=== PATIENT | female | born 1975 | race Native Hawaiian/Other Pacific Islander ===

== ENCOUNTER 2018-11-14 19:41 | Emergency (ER) | payer OTHER ==
[2018-11-14 19:51] VITALS: BP 150/94; PULSE 102; TEMP 98.5; BMI 25.0
--- NOTE | 2018-11-14 21:50 | PDOC ---
History of Present Illness - General History Source: Patient Exam Limitations: No Limitations <Germaine Kelly - Last Filed: 11/15/18 02:19> <Lizzette Farmer - Last Filed: 11/15/18 02:39> - General Chief Complaint: Ear Problem Stated Complaint: EAR INFECTION Time Seen by Provider: 11/14/18 20:52 Past History - Past Medical History COPD: No - Suicide/Smoking/Psychosocial Hx Smoking History: Never smoked <Germaine Kelly - Last Filed: 11/15/18 02:19> <Lizzette Farmer - Last Filed: 11/15/18 02:39> - Past Medical History Allergies/Adverse Reactions: Allergies Allergy/AdvReac Type Severity Reaction Status Date / Time No Known Allergies Allergy Verified 11/14/18 19:51 Home Medications: Ambulatory Orders Amox-Tr/K Cl [Augmentin - 875Mg Tablet] 1 tab PO BID 7 Days #14 tablet 11/15/18 oxyCODONE HCL [Roxicodone -] 10 mg PO Q6H PRN #12 tablet MDD 4 11/15/18 *Physical Exam - Vital Signs Last Vital Signs Temp Pulse Resp BP Pulse Ox 98.5 F 102 H 20 150/94 99 11/14/18 19:45 11/14/18 19:45 11/14/18 19:45 11/14/18 19:45 11/14/18 19:45 <Germaine Kelly - Last Filed: 11/15/18 02:19> - Vital Signs Last Vital Signs Temp Pulse Resp BP Pulse Ox 98.5 F 102 H 20 150/94 99 11/14/18 19:45 11/14/18 19:45 11/14/18 19:45 11/14/18 19:45 11/14/18 19:45 <Lizzette Farmer - Last Filed: 11/15/18 02:39> Moderate Sedation - Procedure Monitoring Vital Signs: Procedure Monitoring Vital Signs Temperature 98.5 F 11/14/18 19:45 Pulse Rate 102 H 11/14/18 19:45 Respiratory Rate 20 11/14/18 19:45 Blood Pressure 150/94 11/14/18 19:45 O2 Sat by Pulse Oximetry (%) 99 11/14/18 19:45 <Germaine Kelly - Last Filed: 11/15/18 02:19> - Procedure Monitoring Vital Signs: Procedure Monitoring Vital Signs Temperature 98.5 F 11/14/18 19:45 Pulse Rate 102 H 11/14/18 19:45 Respiratory Rate 20 11/14/18 19:45 Blood Pressure 150/94 11/14/18 19:45 O2 Sat by Pulse Oximetry (%) 99 11/14/18 19:45 <Lizzette Farmer - Last Filed: 11/15/18 02:39> ED Treatment Course - LABORATORY CBC & Chemistry Diagram: 11/14/18 22:33 11/14/18 22:33 <RobinGermaine - Last Filed: 11/15/18 02:19> - LABORATORY CBC & Chemistry Diagram: 11/14/18 22:33 11/14/18 22:33 - ADDITIONAL ORDERS Additional order review: Laboratory Results 11/14/18 11/14/18 22:49 22:33 Sodium 140 Potassium 3.0 L Chloride 104 Carbon Dioxide 22 Anion Gap 13 BUN 11 Creatinine 0.9 Creat Clearance w eGFR > 60 Random Glucose 67 L Calcium 8.4 L Total Bilirubin 0.7 AST 37 ALT 41 Alkaline Phosphatase 90 Total Protein 7.9 Albumin 3.6 Serum , Qual Negative 11/14/18 22:33 RBC 4.21 MCV 77.1 L MCHC 34.3 RDW 14.5 MPV 6.4 L Neutrophils % 82.9 H Lymphocytes % 11.4 Monocytes % 4.9 Eosinophils % 0.3 Basophils % 0.5 - Medications Given in the ED: ED Medications Discontinued Medications Generic Name Dose Route Start Last Admin Trade Name Naomy PRN Reason Stop Dose Admin Acetaminophen 1,000 mg 11/14/18 22:05 11/14/18 22:39 Ofirmev Injection - IVPB 11/14/18 22:06 1,000 mg ONCE ONE Administration Benzocaine 1 spray 11/14/18 23:21 11/14/18 23:29 [place] 20% [place] - TP 11/14/18 23:22 1 spray ONCE ONE Administration Dexamethasone Sodium Phosphate 10 mg 11/14/18 22:05 11/14/18 22:38 Decadron Injection - IVPUSH 11/14/18 22:06 10 mg ONCE ONE Administration Sodium Chloride 1,000 mls @ 1,000 mls/hr 11/14/18 22:28 11/14/18 22:39 Normal Saline - IV 11/14/18 23:27 1,000 mls/hr ASDIR STA Administration Ampicillin Sodium/Sulbactam 100 mls @ 200 mls/hr 11/14/18 23:39 11/15/18 00: 05 Sodium 1.5 gm/ Sodium Chloride IVPB 11/15/18 00:08 200 mls/hr ONCE ONE Administration Ketorolac Tromethamine 15 mg 11/14/18 22:28 11/14/18 22:39 Toradol Injection - IVPUSH 11/14/18 22:29 15 mg ONCE ONE Administration Lidocaine HCl 5 ml 11/14/18 23:41 11/14/18 23:52 Xylocaine 1% SQ 11/14/18 23:42 5 ml ONCE ONE Administration Potassium Chloride 40 meq 11/14/18 23:42 11/15/18 00:09 Potassium Chloride Oral Liquid PO 11/14/18 23:43 40 meq ONCE ONE Administration <Lizzette Farmer - Last Filed: 11/15/18 02:39> Medical Decision Making - Medical Decision Making Pt was seen at bedside, also will be seen by attending Dr. Farmer. Pt presenting with complaints of L ear pressure and pain/swelling in her throat, with difficulty handling PO food and fluid intake. PE showed [] Considering [vs vs] Ordered work-up including CBC, CMP, and serum . Will look for peritonsillar abscess with bedside US. Provided 1 g ofirmev, 15 mg IV toradol, and 10 mg IV decadron for improvement of pain and swelling. Will continue to reassess pt and monitor for symptomatic improvement. 11/14/18 22:49 Strep throat still positive, despite pt taking PO amoxicillin 875 mg x4 days -- Unasyn provided in ER for antibiotic coverage. Bedside incision and drainage attempted of peritonsillar abscess -- minimal drainage noted. Ordered CT neck with IV contrast to r/o deeper tissue involvement. CBC: WBC 19 CMP: generally WNL, K 3.0 -- repleted with 40 mg PO K test negative 11/15/18 01:[address] neck with IV contrast 11/15/18 01:04 <Germaine Kelly - Last Filed: 11/15/18 02:19> *DC/Admit/Observation/Transfer - Discharge Dispostion Decision to Admit order: No <Germaine Kelly - Last Filed: 11/15/18 02:19> <Lizzette Farmer - Last Filed: 11/15/18 02:39> Diagnosis at time of Disposition: Peritonsillar abscess, Strep tonsillitis - Discharge Dispostion Disposition: HOME Condition at time of disposition: Improved - Prescriptions Prescriptions: Amox-Tr/K Cl [Augmentin - 875Mg Tablet] 1 tab PO BID 7 Days #14 tablet oxyCODONE HCL [Roxicodone -] 10 mg PO Q6H PRN #12 tablet MDD 4 PRN Reason: Pain Level 7 - 10 - Referrals Ref[place]: [facility] [place] [place]Provider Group] Mamadou Johansen [Staff Physician] - Jerome Kendrick MD [Staff Physician] - - Patient Instructions Printed Discharge Instructions: DI for Pharyngitis/Tonsillopharyngitis -- Adult , DI for Strep Throat, DI for Peritonsillar Abscess -- Adult Additional Instructions: Your laboratory / imaging results were remarkable for infection of your throat, called Strep. there is also an early abscess in development of your throat on the left side of tonsil you were offered admission, but declined. you have tolerated fluids and pain controlled Follow up with your physician and consultants as instructed below - this is an urgent matter, take your medications as instructed including Augmentin x 10 days to cover strep and other serious infections. you can also take motrin/ tylenol as needed, but oxycodone for severe pain. Return if worsening symptoms including worsening pain/sore throat, pain, muffled voice, cannot tolerate secretions, high fevers, headache, vomiting, visual or hearing disturbances, confusion, abdominal pain, chest pain, shortness of breath, respiratory distress, syncope, dehydration, inability to take things by mouth/vomiting, altered mental status, or worsening concerning symptoms. your medications on discharge include_ side effects may include upset stomach, abdominal pain, vomiting, or diarrhea. do not drink alcohol with your medications. You should call to make appointment with Dr Kendrick or Haily, environmental professional doctors for ENT. [facility] Address: [address] [place] [id number] Hours: Opens 8:30AM Mon ======== [address] [facility] [address] [place], [address] [facility]
[2018-11-14] MEDS ORDERED: DEXAMETHASONE SOD PHOSPHATE 10 MG/1 ML VIAL IVPUSH ONE (22:05)
[2018-11-14] MEDS ORDERED: ACETAMINOPHEN 1000 MG/100 ML VIAL (NON FORMULARY) IVPB ONE (22:05)
[2018-11-14] MEDS ORDERED: KETOROLAC TROMETHAMINE 15 MG/ML VIAL IVPUSH ONE (22:28)
[2018-11-14] MEDS ORDERED: SODIUM CHLORIDE 1,000 ML IV STA (22:28)
[2018-11-14] MEDS ORDERED: ACETAMINOPHEN INJECTION 100 ML IVPB ONE (22:33)
[2018-11-14] MEDS ORDERED: DEXAMETHASONE SOD PHOSPHATE 4 MG/1 ML VIAL ONE (22:33)
[2018-11-14 22:40] LABS: BASO % 0.5 % (0-2.0); EOS % 0.3 % (0-4.5); HEMATOCRIT 32.4 % (32.4-45.2); HEMOGLOBIN 11.1 GM/dL (10.7-15.3); LYMPH % 11.4 % (8-40); MCH 26.5 pg (25.7-33.7); MCHC 34.3 g/dl (32.0-36.0); MEAN CELL VOLUME 77.1 fl (80-96); MEAN PLT VOLUME 6.4 fl (7.5-11.1); MONO % 4.9 % (3.8-10.2); NEUT % 82.9 % (42.8-82.8); PLATELET COUNT 568 K/MM3 (134-434); RBC 4.21 M/mm3 (3.60-5.2); RDW 14.5 % (11.6-15.6); WHITE BLOOD COUNT 19.9 K/mm3 (4.0-10.0)
[2018-11-14 23:02] LABS: ALBUMIN 3.6 g/dl (3.4-5.0); ALK PHOS 90 U/L (45-117); ANION GAP 13 MMOL/L (8-16); BILIRUBIN,TOTAL 0.7 mg/dL (0.2-1); BLOOD UREA NITROGEN 11 mg/dL (7-18); CALCIUM 8.4 mg/dL (8.5-10.1); CHLORIDE 104 mmol/L (98-107); CO2 22 mmol/L (21-32); CREATININE 0.9 mg/dL (0.55-1.3); GLUCOSE,RANDOM 67 mg/dL (74-106); SGOT/AST 37 U/L (15-37); SGPT/ALT 41 U/L (13-61); SODIUM 140 mmol/L (136-145); TOT PROT 7.9 g/dl (6.4-8.2)
[2018-11-14] MEDS ORDERED: BENZOCAINE 20% 57 GM BOTTLE TP ONE (23:21)
[2018-11-14] MEDS ORDERED: AMPICILLIN NA/SULBACTAM NA 1.5 GM in SODIUM CHLORIDE 100 ML IVPB ONE (23:39)
--- NOTE | 2018-11-14 23:40 | PDOC ---
Attending Attestation - Resident Resident Name: Germaine Kelly - ED Attending Attestation I have performed the following: I have examined & evaluated the patient, The case was reviewed & discussed with the resident, I agree w/resident's findings & plan - HPI HPI: 11/15/18 02:08 [id number], with no significant past medical history, who presents to the emergency department with, left ear pressure and pain/swelling to the throat x 6 days. + intermittent fevers and sore throat, some difficulty swallowing but shannan PO. recent urgent care visit, started on amoxicillin which she has been taking x 3 days with some effect no travel, no sick contacts She denies headache or dizziness. She denies recent nausea, vomit, diarrhea or constipation. She denies recent dysuria, frequency, urgency or hematuria. She denies recent chest pain or shortness of breath. Allergies: NKDA - Physicial Exam PE: 11/14/18 23:39 NCAT, PERRL, EOMI, clear conjunctiva, anicteric, moist mucus membranes, +left tonsillar hypertrophy and mild uvula deviation, +erythema. Airway patent, shannan secretions. No sinus tenderness, TM clear, +cerumen bilaterally. no pinna tenderness to manipulation. NAD, left cervical/submandibular TTP, FROM, no meningismus CTAB, RRR, Abdomen soft NTND. WWP, no rash. no focal neuro deficits. - Medical Decision Making 11/14/18 23:40 DDx DRY END TESTER, deep space infection, tonsillitis, strep, pharyngitis, viral syndrome. electrolyte derangements, AOM, lymphadenopathy. hpi as documented vitals with tachycardia. no fever here. labs and lytes remarkable for leukocytosis of 19K. 2/2 strep infection. potassium low, repleted. neg preg test. ED interventions: toradol, IVF, unasyn. dexamethasone IV. PO potassium repleted. monitored closely. bedside sono with fluid collection and enlarged left tonsil. clinically correlating with DRY END TESTER. bedside drainage, topical and lido inj analgesia. only blood, no purulence expelled. despite stab incision and needle aspiratin. CT neck with patent airway, left tonsil with phlegmon vs early abscess, extending to hypopharynx, epiglottis normal, cords normal; glands normal pt offered admission for infection, abx, monitoring, hydration and supportive management, but feels improved, shannan PO after steroids and analgesia. pt elects for discharge, with close shared decision making weight benefits and risks of admission vs discharge. pt has capacity to make decisions with partner at bedside, extensive discussion provided. pt would like to be discharged with outpatient followup by ENT, which is appropriate with discussing the results she is clinically improving, no meningismus, no trismus, airway patent, normal phonation and toleration secretions. also bedside I&D of left DRY END TESTER performed, with no output likely from phlegmon and too early for pus. pt made aware of impression and plan, broaden abx coverage with Augmentin, as +strep and should respond. f/u throat cultures. ENT called, spoke with Dr. Johansen - discussed results and findings and CT results, can followup in office in 1-2 days. after extensive discussion/counseling, pt elects to be discharged in stable condition. Patient and family made aware of impression and plan, strict return precautions discussed (including but not limited to worsening pain or symptoms) , fevers, or signs of infection, chest pain, respiratory distress, inability to tolerate oral intake, dehydration, syncope, or neurologic changes, dehydration, dysphagia, muffled voice/trismus). Follow up with PMD and/or specialist as recommended - ENT referrals given, follow up information provided, take medications as instructed for duration of time. continue with supportive care, avoid triggers and precipitants. All questions answered to patient's satisfaction and expressed understanding and comfort with this. rx analgesia, augmentin course 11/15/18 02:40 *DC/Admit/Observation/Transfer Diagnosis at time of Disposition: Peritonsillar abscess, Strep tonsillitis - Discharge Dispostion Disposition: HOME Condition at time of disposition: Improved Decision to Admit order: No - Prescriptions Prescriptions: Amox-Tr/K Cl [Augmentin - 875Mg Tablet] 1 tab PO BID 7 Days #14 tablet oxyCODONE HCL [Roxicodone -] 10 mg PO Q6H PRN #12 tablet MDD 4 PRN Reason: Pain Level 7 - 10 - Referrals Referrals: [facility] [place] [facility] [place] [Provider Group] Mamadou Johansen [Staff Physician] - Jerome Kendrick MD [Staff Physician] - - Patient Instructions Printed Discharge Instructions: DI for Pharyngitis/Tonsillopharyngitis -- Adult , DI for Strep Throat, DI for Peritonsillar Abscess -- Adult Additional Instructions: Your laboratory / imaging results were remarkable for infection of your throat, called Strep. there is also an early abscess in development of your throat on the left side of tonsil you were offered admission, but declined. you have tolerated fluids and pain controlled Follow up with your physician and consultants as instructed below - this is an urgent matter, take your medications as instructed including Augmentin x 10 days to cover strep and other serious infections. you can also take motrin/ tylenol as needed, but oxycodone for severe pain. Return if worsening symptoms including worsening pain/sore throat, pain, muffled voice, cannot tolerate secretions, high fevers, headache, vomiting, visual or hearing disturbances, confusion, abdominal pain, chest pain, shortness of breath, respiratory distress, syncope, dehydration, inability to take things by mouth/vomiting, altered mental status, or worsening concerning symptoms. your medications on discharge include_ side effects may include upset stomach, abdominal pain, vomiting, or diarrhea. do not drink alcohol with your medications. You should call to make appointment with Dr Kendrick or Haily, physical education instructor doctors for ENT. [facility] Address: [address] [place] [id number] Hours: Opens 8:30AM Mon ======== [address], [address] [facility] - Post Discharge Activity
[2018-11-14] MEDS ORDERED: LIDOCAINE HCL 1%, 10 MG/ML (50 mL VIAL) SQ ONE (23:41)
[2018-11-14] MEDS ORDERED: POTASSIUM CHLORIDE ORAL LIQUID 20 MEQ/15 ML PO ONE (23:42)
[2018-11-14] MEDS ORDERED: LIDOCAINE HCL 1%, 10 MG/ML (20ML VIAL) ONE (23:51)
[2018-11-15] MEDS ORDERED: POTASSIUM CHLORIDE ORAL LIQUID 20 MEQ/15 ML ONE (00:09)
== END 2018-11-15 02:45 | disposition home or self-care (01) ==
LOC: JERFT 19:41 → JER 19:41
PROC: 0C9P0ZZ Drainage of Tonsils, Open Approach (ICD-10-PCS; principal; 2018-11-14)
PROC: 3E03329 Introduction of Other Anti-infective into Peripheral Vein, Percutaneous Approach (ICD-10-PCS; 2018-11-14)
PROC: 3E0333Z Introduction of Anti-inflammatory into Peripheral Vein, Percutaneous Approach (ICD-10-PCS; 2018-11-14)
PROC: 3E0333Z Introduction of Anti-inflammatory into Peripheral Vein, Percutaneous Approach (ICD-10-PCS; 2018-11-14)
PROC: 3E033NZ Introduction of Analgesics, Hypnotics, Sedatives into Peripheral Vein, Percutaneous Approach (ICD-10-PCS; 2018-11-14)
DX: J36 Peritonsillar abscess (principal); J02.0 Streptococcal pharyngitis; B95.0 Streptococcus, group A, as the cause of diseases classified elsewhere
CPT/HCPCS: 36415; 70491-TC; 80053; 84703; 85025; 87880; 99282-25; J0131; J1100; J7030